=== PATIENT | male | born 1970 | race Caucasian/White ===

== ENCOUNTER 2020-03-17 21:50 | Inpatient (IN) | payer SELFPAY ==
[2020-03-17 21:51] VITALS: BP 147/75; BP 147/88; PULSE 82; PULSE 87; RESP 16; RESP 18; TEMP 36.7; O2SAT 97; BMI 24.2
[2020-03-17 21:56] VITALS: BP 137/78; PULSE 67; RESP 16; O2SAT 94
--- NOTE | 2020-03-17 21:56 | XR_ITS ---
WS: [id number] EXAM: AP CHEST: PORTABLE UPRIGHT DATE OF EXAM: 03/17/2020, 1005 hours COMPARISON: Chest x-ray from 02/27/2017 HISTORY: Patient is 49 years old with chest pain for the last 2 weeks. History of COPD.. FINDINGS: The cardiac silhouette is normal in size. The mediastinal contours are normal. The pulmonary vas cularity is normal. The lungs are clear of infiltrate. There is no effusion or pneumothorax. No [place] bony abnormality is seen. XR/XR chest 1V portable [id number] IMPRESSION: No acute pulmonary disease.
--- NOTE | 2020-03-17 21:57 | ECG_ITS ---
[facility] Test Date: 2020-03-17 Pat Name: Apollo Price Department: Room: Gender: Male [employer]: : 1970 Requested By: Rosalia Encarnacion Order Number: [id number] Villareal MD: Wellington Jo M.D. Measurements Intervals [place] Rate: 70 P: 70 RI: 142 QRS: 47 QRSD: 84 T: 71 QT: 340 QTc: 368 Interpretive Statements SINUS RHYTHM POSSIBLE LEFT ATRIAL ENLARGEMENT [-0.1mV P WAVE IN V1/V2] NONSPECIFIC ST & T-WAVE ABNORMALITY Compared to ECG 02/27/2017 12:17:59 T-wave abnormality now present Myocardial infarct finding no longer present Electronically Signed On 03-18-2020 20:52:04 CDT by Wellington Jo M.D. [email or web address]/[id number]
--- NOTE | 2020-03-17 21:58 | W.ED.CHESTPA ---
HPI - Chest Pain General: Chief Complaint: Chest Pain Stated Complaint: CP Time Seen by Provider: 03/17/20 21:54 Source: patient Mode of arrival: ambulatory Limitations: no limitations History of Present Illness: HPI narrative: Frantz is a 49-year-old male who comes in with report of chest pain for the past 2 weeks. He states is been intermittent in nature. It is been progressively worsening in severity and frequency. He states it is made worse by exertion relieved by rest and nitroglycerin. Tonight he had his worst episode of chest pain that he also had a syncopal spell with. He had associated diaphoresis, nausea vomiting and radiation to his arm. EMS was called after this happened and with stable vital signs they gave him aspirin 325 and 1 sublingual nitroglycerin which resolved his symptoms. Patient arrives here says his pain is for the most part gone. Patient still says he feels weak and tired all over. Denies any cough, fever or infectious type symptoms. Patient is a smoker, has history of hypertension and a family history of heart disease. Associated symptoms: Reports diaphoresis, dyspnea and syncope; Deny abdominal pain, fever(s) or palpitations Review of Systems Const: Reports: diaphoresis; Denies: fever(s), chills, body aches, fatigue or malaise Eyes: Denies: change in vision, blurry vision, photophobia, eye discomfort, eye discharge, eye redness or yellow eyes ENMT: Denies: throat pain, odynophagia, hoarseness, swelling of lips/tongue, ear or mastoid pain, ear discharge, change in hearing or nasal discharge Card: Reports: chest pain and syncope; Denies: palpitations, irregular heart rhythm, edema, lightheadedness, pre-syncope, dyspnea on exertion or orthopnea Resp: Reports: dyspnea; Denies: productive cough, non-productive cough, wheezing, hemoptysis or chest congestion GI: Denies: abdominal pain, hematemesis, coffee ground emesis, heartburn, diarrhea, constipation, GI cramping, hematochezia or melena : Denies: flank pain, dysuria, urinary frequency, urinary urgency or hematuria Musc: Denies: neck pain, back pain, extremity pain, extremity swelling, joint pain, joint swelling, joint redness, joint warmth or joint stiffness Skin/Breast: Denies: rash, pruritus, erythema, skin pain or skin tenderness Neuro: Denies: headache(s), numbness in extremities, weakness in extremities, sensory changes, lack of coordination, difficulty walking, dizziness, vertigo, confusion, Slurred speech present or seizure-like activity Hu/Lymph: Denies: easy bruising, easy bleeding, petechiae, purpura or enlarged lymph nodes All/Imm: Denies: urticaria, throat swelling, tongue swelling, facial swelling or acute wheezing PFSH ED PFSH: Medical History (Updated 03/18/20 @ 04:10 by Rosalia Jackson) Hypertension Physical Exam Const: COMMON NORMALS: no acute distress, patient oriented x3, no limitations and alert GENERAL APPEARANCE: cooperative HENMT: COMMON NORMALS: normocephalic, atraumatic, external ears normal, EAC's normal and Normal external nose present HEAD & SCALP: normal to inspection, normocephalic and atraumatic FACE & SINUS: normal facial exam and face symmetric NOSE: Normal external nose present and Normal nares present EXTERNAL EAR: Yes external ears normal EXTERNAL AUDITORY CANAL: EAC's normal MOUTH: Normal oral and palatal mucosa present, lip normal and tongue normal Eye: COMMON NORMALS: Equal, round and reactive pupils present and conjunctivae normal GENERAL EYE: appearance normal, both eyes and all related structures ALIGNMENT: Yes alignment normal PERIORBITAL: periorbital findings normal EYELID: eyelids normal CONJUNCTIVA: Yes conjunctivae normal SCLERA: sclerae normal PUPIL: Yes Equal, round and reactive pupils present Neck/C-Spine: COMMON NORMALS: full ROM, no lymphadenopathy, supple, no meningeal signs and no JVD GENERAL: Yes normal visual inspection and Yes trachea midline Chest: COMMONS NORMALS: normal inspection of the chest and normal palpation of entire chest wall Resp: COMMON NORMALS: normal respiratory effort, No retractions, No use of accessory muscles and clear to auscultation bilaterally EFFORT & INSPECTION: Yes able to speak in complete sentences and Yes symmetric chest movement AUSCULTATION: clear to auscultation bilaterally, no crackles, no rales, no rhonchi and no wheezes Cardio: COMMON NORMALS: no JVD, regular rate, regular rhythm, S1 normal heart sound present and S2 normal heart sound present RATE: regular rate RHYTHM: regular rhythm HEART SOUNDS: S1 normal heart sound present, S2 normal heart sound present, no click, no gallops, no murmurs and no rubs GI: COMMON NORMALS: Soft to palpation and No hepatosplenomegaly present PALPATION: Yes Soft to palpation, No Tenderness to palpation present (GI), No Guarding due to palpation present (GI), No Rigid due to palpation, Yes No hepatosplenomegaly present, No Hernia present, No Palpable mass present and No Pulsatile mass present : COMMON NORMALS: Yes no CVA tenderness BLADDER/KIDNEY EXAM: Yes no CVA tenderness Back/Pelvis: COMMON NORMALS: no CVA tenderness, thoracic and lumbar spine normal to inspection, no thoracic nor lumbar tenderness and thoraco-lumbar ROM normal Extremity: COMMON NORMALS: normal to inspection, full ROM, capillary refill normal, no joint enlargement, no clubbing, cyanosis or edema and no calf tenderness Neuro: COMMON NORMALS: patient oriented x3, CN's II-XII intact bilaterally, moves all extremities, no focal motor deficits and no sensory deficits noted SENSORIUM/ORIENTATION: Yes alert MENINGEAL SIGNS: Yes no meningeal signs SPEECH: speech normal Psych: COMMON NORMALS: mental status grossly normal, Normal thought process present, cooperative, normal affect, speech normal and activity/motor behavior normal SPEECH: Yes normal speech THOUGHT PROCESS: Normal thought process present Skin: COMMON NORMALS: no rashes or lesions noted, turgor normal, no jaundice, no petechiae and no mottling GENERAL SKIN EXAM: no rashes or lesions noted and turgor normal Course Vital Signs: Vital signs: Vital Signs Temperature 98.0 F 03/18/20 04:15 Pulse Rate 62 03/18/20 04:14 Respiratory Rate 15 03/18/20 04:14 Blood Pressure 119/76 03/18/20 04:14 Pulse Oximetry 98 03/18/20 04:14 MDM - Chest Pain MDM Narrative: Medical decision making narrative: The case was reviewed in its entirety with Dr. Morales, patient has good pulses in his feet no sign of vascular obstruction. Patient's chest pain is been resolved with 1 nitro here. He has ruled in positive for a NSTEMI. Dr. Morales will admit and plans to take him to the [facility] later. Lab Data: Attestation: I reviewed the patient's lab results. Labs: Lab Results 03/17/20 03/17/20 03/17/20 Range/Units 22:04 22:04 22:04 WBC 9.0 (4.0-10.0) 10^3/ uL RBC 4.71 (4.1-5.3) 10^6/u L Hgb 14.1 (11.7-16.6) g/dL Hct 43.6 (42.0-52.0) % MCV 92.6 (80-94) fL MCH 29.9 (28.0-34.0) pg MCHC 32.3 (30.0-36.0) g/dL RDW 13.5 (12.1-15.1) % Plt Count 249 (130-400) 10^3/c mm MPV 10.5 H (7.4-10.4) fL Neut % (Auto) 69.3 % Lymph % (Auto) 23.1 % [place] % (Auto) 5.7 % Eos % (Auto) 1.4 % Baso % (Auto) 0.3 % Neut # (Auto) 6.25 (1.8-7.7) 10^3/u L Lymph # (Auto) 2.1 (0.8-4.8) 10^3/u L [place] # (Auto) 0.5 (0.2-0.9) 10^3/u L Eos # (Auto) 0.1 (0.0-0.8) 10^3/u L Baso # (Auto) 0.0 (0.0-0.1) 10^3/u L Nucleated RBC % (a uto) 0 % Nucleated RBCs # 0.0 /100WBC PT 13.30 (12.1-14.9) SECO NDS INR 0.98 (0.8-1.2) APTT 27.5 (23.9-36.7) SECO NDS D-Dimer (0-0.59) ug/mIFE U Sodium 141 (136-145) mmol/L Potassium 3.5 (3.5-5.1) mmol/L Chloride 106 (98-107) mmol/L Carbon Dioxide 26 (22-29) mmol/L Anion Gap 12.5 (5-19) BUN 15 (6-20) mg/dL Creatinine 0.9 (0.7-1.2) mg/dL GFR Calculation 89.0 L (90-130) mL/min Glucose 160 H (65-115) mg/dL Calculated Osmolal ity 292 (285-295) mOsm/k g Calcium 8.9 (8.5-10.5) mg/dL Magnesium 2.0 (1.7-2.3) mg/dL Total Bilirubin 0.2 (0.15-1.2) mg/dL AST 19 (0-40) U/L ALT 17 (0-41) U/L Alkaline Phosphata se 117 (40-130) IU/L Troponin T Baselin e (0-15) ng/L Troponin T 120 Min [place] (0-15) ng/L Delta Troponin T (0-10) ABS# NT-Pro-B Natriuret Pep 47 (0-125) pg/mL Total Protein 6.6 (6.6-8.7) g/dL Albumin 3.8 (3.5-5.2) g/dL Globulin 2.8 (1.3-4.6) g/dL 03/17/20 03/17/20 03/18/20 Range/Units 22:04 22:04 00:28 WBC (4.0-10.0) 10^3/ uL RBC (4.1-5.3) 10^6/u L Hgb (11.7-16.6) g/dL Hct (42.0-52.0) % MCV (80-94) fL MCH (28.0-34.0) pg MCHC (30.0-36.0) g/dL RDW (12.1-15.1) % Plt Count (130-400) 10^3/c mm MPV (7.4-10.4) fL Neut % (Auto) % Lymph % (Auto) % [place] % (Auto) % Eos % (Auto) % Baso % (Auto) % Neut # (Auto) (1.8-7.7) 10^3/u L Lymph # (Auto) (0.8-4.8) 10^3/u L [place] # (Auto) (0.2-0.9) 10^3/u L Eos # (Auto) (0.0-0.8) 10^3/u L Baso # (Auto) (0.0-0.1) 10^3/u L Nucleated RBC % (a uto) % Nucleated RBCs # /100WBC PT (12.1-14.9) SECO NDS INR (0.8-1.2) APTT (23.9-36.7) SECO NDS D-Dimer 2.78 H (0-0.59) ug/mIFE U Sodium (136-145) mmol/L Potassium (3.5-5.1) mmol/L Chloride (98-107) mmol/L Carbon Dioxide (22-29) mmol/L Anion Gap (5-19) BUN (6-20) mg/dL Creatinine (0.7-1.2) mg/dL GFR Calculation (90-130) mL/min Glucose (65-115) mg/dL Calculated Osmolal ity (285-295) mOsm/k g Calcium (8.5-10.5) mg/dL Magnesium (1.7-2.3) mg/dL Total Bilirubin (0.15-1.2) mg/dL AST (0-40) U/L ALT (0-41) U/L Alkaline Phosphata se (40-130) IU/L Troponin T Baselin e 31 H (0-15) ng/L Troponin T 120 Min [place] 94.91 H (0-15) ng/L Delta Troponin T 63.91 H* (0-10) ABS# NT-Pro-B Natriuret Pep (0-125) pg/mL Total Protein (6.6-8.7) g/dL Albumin (3.5-5.2) g/dL Globulin (1.3-4.6) g/dL Imaging Data^: CXR: Attestation: I personally reviewed and interpreted this imaging study as follows: My impression: No acute cardiopulmonary findings. CT Chest: Radiologist's impression: [address] [address] [address] Scan Report Signed Patient: Apollo Price #: [id number] : 1970Acct#:[id number] Age/Sex: 49 / MADM Date: 03/18/20 Loc: CSURoom/Bed: [address]: Kelli Santos MD Ordering Provider/Ordering MD: Rosalia Jackson DO Date of Service: 03/18/20 Procedure(s): CT angio chest PE protcl [id number] Accession Number(s): [id number] Report Number: [id number] PROCEDURE INFORMATION: Exam: CT Angiography Chest With Contrast Exam date and time: 03/18/2020 1:16 AM Age: 49 years old Clinical indication: Type not specified; Patient HX: Chest pains x 2 wks, getting worse; Additional info: Chest pain TECHNIQUE: Imaging protocol: Computed tomographic angiography of the chest with intravenous contrast. 3D rendering (Not supervised by radiologist): MIP and/or 3D reconstructed images were created by the technologist. Radiation optimization: All CT scans at this facility use at least one of these dose optimization techniques: automated exposure control; mA and/or kV adjustment per patient size (includes targeted exams where dose is matched to clinical indication); or iterative reconstruction. Contrast material: OMNIPAQUE 350; Contrast volume: 95 ml; Contrast route: INTRAVENOUS (IV); COMPARISON: CR XR chest 1V portable [id number] 2020-03-17 22:02 RADIATION DOSE METRICS: Total DLP (mGy-cm): 605.89 FINDINGS: Pulmonary arteries: No filling defects in the pulmonary arteries to suggest pulmonary emboli. Aorta: Abnormal appearance of the abdominal aorta, recommend further evaluation. There is irregularity of the wall with an abdominal aortic aneurysm with intraluminal thrombus partially visualized. Lungs: There is a pulmonary parenchymal calcification consistent with remote granulomatous organism exposure. Dependent subsegmental pulmonary atelectasis. Pleural space: Unremarkable. No pneumothorax. No pleural effusion. Heart: Greater than typical left anterior descending coronary artery atherosclerosis for age with luminal compromise. Lymph nodes: Unremarkable. No enlarged lymph nodes. Bones/joints: Unremarkable. No acute fracture. Soft tissues: Unremarkable. Other findings: Recommend abdomen pelvis evaluation to determine how big the aneurysm is. CT/CT angio chest PE protcl [id number] IMPRESSION: 1. No filling defects in the pulmonary arteries to suggest pulmonary emboli. 2. Greater than typical left anterior descending coronary artery atherosclerosis for age with some degree of potentially significant luminal compromise. 3. Abnormal appearance of the abdominal aorta, recommend further evaluation. There is irregularity of the wall with an abdominal aortic aneurysm with intraluminal thrombus partially visualized. Recommend abdomen pelvis evaluation to determine how big the aneurysm is. Radiation Dose CTDIVOL = (mGy): DLP = 605.89 (mGy-cm) Dictated By:Eros Gomez MD Signed By:Eros Gomez MDSigned Date/Time:03/18/20304 DD/ 3 CT Abd/Pel: Radiologist's impression: [facility] [address] [place] [address] CT Scan Report Signed Patient: Apollo Price #: [id number] : 1970Acct#:[id number] Age/Sex: 49 / MADM Date: 03/18/20 Loc: CSURoom/Bed: [address]: Wellington Jo MD Ordering Provider/Ordering MD: Rosalia Jackson DO Date of Service: 03/18/20 Procedure(s): CT abdomen pelvis wo con [id number] Accession Number(s): [id number] Report Number: [id number] PROCEDURE INFORMATION: Exam: CT Abdomen And Pelvis Without Contrast Exam date and time: 03/18/2020 3:31 AM Age: 49 years old Clinical indication: Abdominal pain; Other: Chest pain into abd; Patient HX: Chest pains x 2 weeks radiating into upper abd TECHNIQUE: Imaging protocol: Computed tomography of the abdomen and pelvis without contrast. Radiation optimization: All CT scans at this facility use at least one of these dose optimization techniques: automated exposure control; mA and/or kV adjustment per patient size (includes targeted exams where dose is matched to clinical indication); or iterative reconstruction. COMPARISON: No relevant prior studies available. RADIATION DOSE METRICS: Total DLP (mGy-cm): 451.18 FINDINGS: Liver: Normal. No mass. Gallbladder and bile ducts: Normal. No calcified stones. No ductal dilation. Pancreas: Normal. No ductal dilation. Spleen: The spleen demonstrates punctate calcifications, consistent with remote granulomatous organism exposure. Adrenals: Normal. No mass. Kidneys and ureters: Small, less than 5 mm, renal hypodensity. Highly likely to be benign and does not require follow-up imaging or biopsy per ACR. Benign right inferior renal 8 mm simple cyst. Stomach and bowel: Question thickening of the sigmoid colon, correlate for infectious or inflammatory or neoplastic disease. Slightly excessive fluid in gas within the transverse and ascending colon. No pericolonic stranding. Mildly irregular duodenal bulb and pyloric region, question peptic ulcer disease. Appendix: No evidence of appendicitis. Intraperitoneal space: Unremarkable. No free air. No significant fluid collection. Vasculature: Unremarkable. No abdominal aortic aneurysm. Lymph nodes: Unremarkable. No enlarged lymph nodes. Bladder: Unremarkable as visualized. Reproductive: Unremarkable as visualized. Bones/joints: Unremarkable. No acute fracture. Soft tissues: Unremarkable. CT/CT abdomen pelvis wo con [id number] IMPRESSION: 1. Question thickening of the sigmoid colon, correlate for infectious or inflammatory or neoplastic disease. Nonspecific excessive fluid in gas within the transverse and ascending colon. 2. Mildly irregular duodenal bulb and pyloric region, question peptic ulcer disease. 3. Infrarenal aortic ectasia with maximal diameter 3.3 cm with intraluminal rind of soft plaque or thrombus. Mild narrowing of the lumen of the distal aorta. Assessment for iliac artery patency not possible given the delayed contrast phase. Radiation Dose CTDIVOL = (mGy): DLP = 451.18 (mGy-cm) Dictated By:Eros Gomez MD Signed By:Eros Gomez MDSigned Date/Time:03/18/20358 DD/ 6 EKG Data^: EKG 1: Attestation: I personally reviewed and interpreted this EKG as follows: EKG interpretation date: 03/17/20 EKG interpretation time: 22:28 Interpretation: Normal sinus rhythm at 70 beats a minute, no blocks, normal intervals, mild ST segment depression V4 through V6. Normal axis. No other acute ST or T wave changes. EKG 2: Attestation: I personally reviewed and interpreted this EKG as follows: EKG interpretation date: 03/18/20 EKG interpretation time: 00:36 Interpretation: Normal sinus rhythm at 61 beats a minute, normal axis, no acute ST or T wave changes. Unchanged from previous. Discharge Plan Discharge Patient Disposition: Placed in Observation Admit Provider: Kelli Santos Clinical Impression: Acute non-ST elevation myocardial infarction (NSTEMI) Condition: Stable Referrals: Pillo Elder NP [Primary Care Provider] - Discharge Date/Time: 03/18/20 04:15 Coding Level of Care Code ED Branch Logistics Supervisor for Chg Fwd Exam Comprehensive
[2020-03-17 22:15] LABS: Basophils % 0.3 %; Eosinophils # 0.1 10^3/uL (0.0-0.8); Eosinophils % 1.4 %; Hematocrit 43.6 % (42.0-52.0); Hemoglobin 14.1 g/dL (11.7-16.6); Lymphocytes # 2.1 10^3/uL (0.8-4.8); Lymphocytes % 23.1 %; Mean Corpuscular HGB Conc 32.3 g/dL (30.0-36.0); Mean Corpuscular Hemoglobin 29.9 pg (28.0-34.0); Mean Corpuscular Volume 92.6 fL (80-94); Mean Platelet Volume 10.5 fL (7.4-10.4); Monocytes # 0.5 10^3/uL (0.2-0.9); Monocytes % 5.7 %; Neutrophils # 6.25 10^3/uL (1.8-7.7); Neutrophils % 69.3 %; Nucleated Red Blood Cells % 0 %; Platelet Count 249 10^3/cmm (130-400); Red Blood Count 4.71 10^6/uL (4.1-5.3); Red Cell Distribution Width 13.5 % (12.1-15.1)
[2020-03-17 22:26] VITALS: BP 112/78; PULSE 64; RESP 18; O2SAT 99
[2020-03-17] MEDS: nitroglycerin 1 gm/inch oint Pkt 1 INCH TOPICAL (22:36)
[2020-03-17] MEDS: sodium chloride 0.9% 1,000 ML 100 ML IV (22:36)
[2020-03-17] MEDS: ondansetron 2 mg/ML SDV 2 mL 4 MG IVP (22:36)
[2020-03-17 22:56] VITALS: BP 103/78; PULSE 74; RESP 18; O2SAT 98
[2020-03-17 22:56] LABS: Alanine Aminotransferase 17 U/L (0-41); Albumin Level 3.8 g/dL (3.5-5.2); Alkaline Phosphatase 117 IU/L (40-130); Anion Gap 12.5 (5-19); Aspartate Amino Transferase 19 U/L (0-40); Blood Urea Nitrogen 15 mg/dL (6-20); Calcium 8.9 mg/dL (8.5-10.5); Carbon Dioxide 26 mmol/L (22-29); Chloride 106 mmol/L (98-107); Globulin 2.8 g/dL (1.3-4.6); Glucose 160 mg/dL (65-115); NT Pro B Type Natriuretic Pept 47 pg/mL (0-125); Osmolality Calculated 292 mOsm/kg (285-295); Potassium 3.5 mmol/L (3.5-5.1); Sodium 141 mmol/L (136-145); Total Bilirubin 0.2 mg/dL (0.15-1.2); Total Protein 6.6 g/dL (6.6-8.7)
[2020-03-17 23:05] LABS: INR 0.98 (0.8-1.2)
[2020-03-17 23:06] LABS: Partial Thromboplastin Time 27.5 SECONDS (23.9-36.7)
[2020-03-17 23:08] LABS: Troponin(5th) Baseline 31 ng/L (0-15)
--- NOTE | 2020-03-17 23:57 | ECG_ITS ---
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 Measurements Intervals [place] Rate: 61 P: 58 [place]: 150 QRS: 48 QRSD: 88 T: 40 QT: 404 QTc: 409 Interpretive Statements SINUS RHYTHM SEPTAL MYOCARDIAL INFARCTION , OF INDETERMINATE AGE [40+ ms Q WAVE IN V1/V2] Compared to ECG 03/17/2020 22:27:15 Myocardial infarct finding now present T-wave abnormality no longer present Electronically Signed On 03-18-2020 20:52:42 CDT by Wellington Jo M.D. [email or web address]/OM/[id number]
[2020-03-18] VITALS (36 sets, daily range): BP systolic 99–163; BP diastolic 58–106; PULSE 61–94; RESP 12–25; TEMP 36.7–37; O2SAT 92–100
[2020-03-18 01:13] LABS: D Dimer 2.78 ug/mIFEU (0-0.59)
--- NOTE | 2020-03-18 01:16 | CTR_ITS ---
PROCEDURE INFORMATION: Exam: CT Angiography Chest With Contrast Exam date and time: 03/18/2020 1:16 AM Age: 49 years old Clinical indication: Type not specified; Patient HX: Chest pains x 2 wks, getting worse; Additional info: Chest pain TECHNIQUE: Imaging protocol: Computed tomographic angiography of the chest with intravenous contrast. 3D rendering (Not supervised by radiologist): MIP and/or 3D reconstructed images were created by the technologist. Radiation optimization: All CT scans at this facility use at least one of these dose optimization techniques: automated exposure control; mA and/or kV adjustment per patient size (includes targeted exams where dose is matched to clinical indication); or iterative reconstruction. Contrast material: OMNIPAQUE 350; Contrast volume: 95 ml; Contrast route: INTRAVENOUS (IV); COMPARISON: CR XR chest 1V portable [id number] 2020-03-17 22:02 RADIATION DOSE METRICS: Total DLP (mGy-cm): 605.89 FINDINGS: Pulmonary arteries: No filling defects in the pulmonary arteries to suggest pulmonary emboli. Aorta: Abnormal appearance of the abdominal aorta, recommend further evaluation. There is irregularity of the wall with an abdominal aortic aneurysm with intraluminal thrombus partially visualized. Lungs: There is a pulmonary parenchymal calcification consistent with remote granulomatous organism exposure. Dependent subsegmental pulmonary atelectasis. Pleural space: Unremarkable. No pneumothorax. No pleural effusion. Heart: Greater than typical left anterior descending coronary artery atherosclerosis for age with luminal compromise. Lymph nodes: Unremarkable. No enlarged lymph nodes. Bones/joints: Unremarkable. No acute fracture. Soft tissues: Unremarkable. Other findings: Recommend abdomen pelvis evaluation to determine how big the aneurysm is. CT/CT angio chest PE protcl [id number] IMPRESSION: 1. No filling defects in the pulmonary arteries to suggest pulmonary emboli. 2. Greater than typical left anterior descending coronary artery atherosclerosis for age with some degree of potentially significant luminal compromise. 3. Abnormal appearance of the abdominal aorta, recommend further evaluation. There is irregularity of the wall with an abdominal aortic aneurysm with intraluminal thrombus partially visualized. Recommend abdomen pelvis evaluation to determine how big the aneurysm is. Radiation Dose CTDIVOL = (mGy): DLP = 605.89 (mGy-cm)
[2020-03-18 01:23] LABS: Troponin 5 2HR 94.91 ng/L (0-15)
[2020-03-18 01:32] LABS: Troponin 5 2HR Delta 63.91 ABS# (0-10)
[2020-03-18] MEDS: enoxaparin 80 mg/0.8 mL Syringe 68 MG SUBCUT (02:00)
[2020-03-18] MEDS: iohexol 350 mg/mL 100 mL Btl IV (02:23)
--- NOTE | 2020-03-18 03:27 | CTR_ITS ---
PROCEDURE INFORMATION: Exam: CT Abdomen And Pelvis Without Contrast Exam date and time: 03/18/2020 3:31 AM Age: 49 years old Clinical indication: Abdominal pain; Other: Chest pain into abd; Patient HX: Chest pains x 2 weeks radiating into upper abd TECHNIQUE: Imaging protocol: Computed tomography of the abdomen and pelvis without contrast. Radiation optimization: All CT scans at this facility use at least one of these dose optimization techniques: automated exposure control; mA and/or kV adjustment per patient size (includes targeted exams where dose is matched to clinical indication); or iterative reconstruction. COMPARISON: No relevant prior studies available. RADIATION DOSE METRICS: Total DLP (mGy-cm): 451.18 FINDINGS: Liver: Normal. No mass. Gallbladder and bile ducts: Normal. No calcified stones. No ductal dilation. Pancreas: Normal. No ductal dilation. Spleen: The spleen demonstrates punctate calcifications, consistent with remote granulomatous organism exposure. Adrenals: Normal. No mass. Kidneys and ureters: Small, less than 5 mm, renal hypodensity. Highly likely to be benign and does not require follow-up imaging or biopsy per ACR. Benign right inferior renal 8 mm simple cyst. Stomach and bowel: Question thickening of the sigmoid colon, correlate for infectious or inflammatory or neoplastic disease. Slightly excessive fluid in gas within the transverse and ascending colon. No pericolonic stranding. Mildly irregular duodenal bulb and pyloric region, question peptic ulcer disease. Appendix: No evidence of appendicitis. Intraperitoneal space: Unremarkable. No free air. No significant fluid collection. Vasculature: Unremarkable. No abdominal aortic aneurysm. Lymph nodes: Unremarkable. No enlarged lymph nodes. Bladder: Unremarkable as visualized. Reproductive: Unremarkable as visualized. Bones/joints: Unremarkable. No acute fracture. Soft tissues: Unremarkable. CT/CT abdomen pelvis wo con [id number] IMPRESSION: 1. Question thickening of the sigmoid colon, correlate for infectious or inflammatory or neoplastic disease. Nonspecific excessive fluid in gas within the transverse and ascending colon. 2. Mildly irregular duodenal bulb and pyloric region, question peptic ulcer disease. 3. Infrarenal aortic ectasia with maximal diameter 3.3 cm with intraluminal rind of soft plaque or thrombus. Mild narrowing of the lumen of the distal aorta. Assessment for iliac artery patency not possible given the delayed contrast phase. Radiation Dose CTDIVOL = (mGy): DLP = 451.18 (mGy-cm)
--- NOTE | 2020-03-18 03:57 | ECG_ITS ---
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 Measurements Intervals [place] Rate: 60 P: 70 NH: 136 QRS: 55 QRSD: 82 T: 51 QT: 412 QTc: 413 Interpretive Statements SINUS RHYTHM SEPTAL MYOCARDIAL INFARCTION [40+ ms Q WAVE IN V1/V2], PROBABLY RECENT ACUTE ID Compared to ECG 03/18/2020 00:36:36 No significant changes Electronically Signed On 03-18-2020 20:52:52 CDT by Wellington Jo M.D. [id number]
--- NOTE | 2020-03-18 04:38 | PC.NURSE ---
Patient arrived to the floor from the ED after report was received via phone. Patient is alert and oriented and ambulatory. Patient does not have any complaints at this time and no pain. VSS. Patient has been oriented to his room and has call light within reach.
[2020-03-18] MEDS: sodium chloride 0.9% 1,000 ML 100 ML IV ×2 (04:45→14:56)
--- NOTE | 2020-03-18 07:44 | PC.NURSE ---
Asleep at this time
[2020-03-18] MEDS: clopidogrel 300 mg Tablet 600 MG PO (10:32)
[2020-03-18] MEDS: pantoprazole DR 40 mg Tablet PO (10:33)
[2020-03-18] MEDS: atorvastatin 40 mg Tablet 80 MG PO ×2 (10:33→19:46)
[2020-03-18] MEDS: nicotine 2 mg Gum 4 MG BUCCAL (12:03)
--- NOTE | 2020-03-18 12:16 | USCV_ITS ---
Apollo Price Age: 49 Gender: M : 1970 Exam Date: 03/18/2020 16:39 Ordering Phys: Wellington Jo MD ([email or web address]) Technologist: Tammy Pfeiffer [place] [facility] [place] Indication: NON ST ELEVATION PA BP: 134 / 58 HR: 73 Rhythm: Sinus Technical Quality: Adequate MEASUREMENTS (Male / Female) Normal Values 2D ECHO LV Diastolic Diameter PLAX 4.5 cm 4.2 - 5.9 / 3.9 - 5.3 cm LV Systolic Diameter PLAX 3.9 cm LV Chamber Size 3.3 cm IVS Diastolic Thickness 1.1 cm 0.6 - 1.0 / 0.6 - 0.9 cm IVS Systolic Thickness 1.4 cm LVPW Diastolic Thickness 1.6 cm 0.6 - 1.0 / 0.6 - 0.9 cm LVPW Systolic Thickness 1.2 cm RV Chamber Size 3.1 cm LVOT Diameter 2.0 cm LV Ejection Fraction 2D Teich 29.7 % LV Ejection Fraction MOD 2C 53.6 % LV Ejection Fraction 2C AL 51.6 % LA Diameter 2.5 cm LA Width 3.1 cm LA Height 3.1 cm RA Width 4.1 cm RA Height 4.1 cm Aorta at Sinotubular Diameter 3.5 cm M-MODE LV Diastolic Diameter MM 4.9 cm 4.2 - 5.9 / 3.9 - 5.3 cm LV Systolic Diameter MM 2.5 cm LV Ejection Fraction MM Teich 80.3 % IVS Diastolic Thickness MM 0.6 cm 0.6 - 1.0 / 0.6 - 0.9 cm IVS Systolic Thickness MM 1.2 cm LVPW Diastolic Thickness MM 1.1 cm 0.6 - 1.0 / 0.6 - 0.9 cm LVPW Systolic Thickness MM 1.1 cm RV Diastolic Diameter MM 1.2 cm Aortic Annulus Diameter 3.4 cm LA Ao Ratio MM 0.7 MV E Point Septal Separation 0.9 cm DOPPLER AV Peak Velocity 153.0 cm/s LVOT Peak Velocity 99.0 cm/s AV Area Cont Eq vti 2.3 cm squared AV Area Cont Eq pk 2.1 cm squared MV Area PHT 3.6 cm squared Mitral E to A Ratio 1.0 MV E' Velocity 13.0 cm/s Mitral E to MV E' Ratio 9.4 Mitral E to LV E' Lateral Ratio 8.5 Mitral E to LV E' Septal Ratio 10.6 TR Peak Velocity 135.9 cm/s TR Peak Gradient 7.4 mmHg TR Mean Velocity 87.1 cm/s TR Mean Gradient 3.6 mmHg TR Velocity Time Integral 25.4 cm TV Peak E Velocity 91.0 cm/s Right Atrial Pressure 3.0 mmHg Pulmonary Artery Systolic Pressu 10.4 mmHg PV Peak Velocity 75.0 cm/s RV Acceleration Time 0.1 s RV Ejection Time 0.3 s RV AcT/ET 0.5 FINDINGS Left Ventricle Normal left ventricular cavity size. Normal left ventricular systolic function. Left ventricular ejection fraction is estimated at 55 %. There is anterior and septal wall hypokinesis.Grade I/IV diastolic dysfunction (abnormal relaxation filling pattern), normal to mildly elevated filling pressures. Right Ventricle The right ventricle is normal in size and function. Right Atrium The right atrium is normal in size. Left Atrium The left atrium is normal in size. Mitral Valve Structurally normal mitral valve without significant stenosis or prolapse. There is no mitral regurgitation. Aortic Valve Mild aortic valve regurgitation. No aortic valve regurgitation. Tricuspid Valve Structurally normal tricuspid valve without significant stenosis or regurgitation. Pulmonary artery systolic pressure is normal. Pulmonic Valve Structurally normal pulmonic valve without significant stenosis. There is no pulmonic regurgitation. Pericardium Normal pericardium without effusion. Aorta Normal ascending aorta dimension. CONCLUSIONS 1-Normal left ventricular cavity size. Normal left ventricular systolic function. Left ventricular ejection fraction is estimated at 55 %. There is anterior and septal wall hypokinesis.Grade I/IV diastolic dysfunction (abnormal relaxation filling pattern), normal to mildly elevated filling pressures. 2-There is no pericardial effusion. 3-No significant valve abnormalities. 4-Pulmonary artery systolic pressure is within normal limits. 5-Right atrial pressure is around 5 mm of mercury. 6-There are no prior echocardiogram studies to compare. Wellington Jo MD (Electronically Signed) Final Date: 19 March 2020 17:17 S
--- NOTE | 2020-03-18 13:01 | PC.CHAP ---
Pastoral Care Encounter/Spiritual Assessment Type of Contact [] Declined police service technician visit [] Patient/Family/Request visit [] Outpatient visit [] Follow-up visit [] Physician referral [] Code/Alert [x] Routine visit [] Staff referral [] Actively dying [] Patient sleeping [] Family support [] [] Out of room [] Palliative care [] [] Receiving care in room [] Pre-surgical visit [] Trauma [] Long length of stay [] ICU visit [] Other: Relational/Emotional Strength [x] Patient feels connected with others/family/visitors/staff [] Distress [] Loneliness/isolation [] Abandonment Spirituality of Patient [x] Person of Amanda [] Attends Jew of their Amanda [x] Believes in Prayer [] Reads Bible or Baptism materials [] There are Spiritual issues to be addressed Motion Picture Set Up Worker Interventions [x] Prayer [x] Active listening [x] Non-anxious presence [x] Spiritual/emotional support [] Crisis/trauma care [] Spiritual counseling [] Bereavement support [] Provided bereavement packet [] Provided Bible/devotional materials [] Provided toy/stuffed animal, coloring book to patient or family member [] Provided Communion [] Anointing/Hornick [] Salvation [] Completed spiritual assessment [] Other: Impact on Illness or Injury [] Angry [] Fearful [] Anxious [] Often cries [] Exhaustion [] Unable to work [] Unable to attend yarsanism [] Unable to walk/stand [] Unable to read [] Unable to drive [] Unable to eat/drink [] Unable to sleep [x] Unable to be with family [] Patient intubated [] Other: Summary Patient stated that he was feeling alright and was just waiting to see the doctor to find out what was needed to be done. Motion Picture Set Up Worker prayed for patient and the patient asked if police service technician would send a nurse into his room. Motion Picture Set Up Worker informed nurse of patient's request. Time spent with patient 8 minutes
[2020-03-18 13:58] LABS: Glucose Urine UA Norm (Normal); Protein Urine 2+ (Negative); Specific Gravity, Urine 1.005 (1.005-1.030); Urine Appearance Hazy (CLEAR); Urine Color Yellow (Yellow); pH Urine 5 (5-7)
[2020-03-18 13:59] LABS: Add Urine Microscopic? YES; Bilirubin Urine Neg (Negative); Blood Urine 3+ (Negative); Ketones Urine Negative (Negative); Leukocyte Esterase Urine Negative (Negative); Nitrate Urine Negative (Negative); Urobilinogen Urine Norm (Negative)
--- NOTE | 2020-03-18 14:00 | PC.NURSE ---
Pt refused Explained pt that we need to prep his groin areas and wrist for LHC. he refused to be shaved in his groin areas. He stated he has problem with hernia on left groin and had back injury since kid. I asked him if he has trouble urinating and he said he has trouble starting to urinate. He said he has trouble with this since 5 yrs ago. notified wood preserving plant laborer.
[2020-03-18 14:07] LABS: Add Urine Culture? Yes; Bacteria Urine TRACE /hpf; Squamous Epithelial Cell Urine 0-4 /hpf (0-5)
--- NOTE | 2020-03-18 14:10 | PC.NURSE ---
pt stated he had received 325 mg of aspirin last night notified dr alston, received T.O read back to give 81 aspirin today.
[2020-03-18] MEDS: aspirin 81 mg Chew Tablet PO (14:36)
[2020-03-18 15:22] LABS: Troponin T (5th) Once 120 ng/L (0-15)
[2020-03-18] MEDS: diphenhydrAMINE 50 mg Capsule PO (16:04)
--- NOTE | 2020-03-18 16:09 | P.HP_ITS ---
Providers/Chief Complaint Admitting Physician: Kelli Santos MD Primary Care Provider: Pillo Elder NP Chief Complaint: CP History of Present Illness Apollo Price is a 49 year old male past medical history significant for continuous tobacco abuse for the last 30 years came in with chest pain going off-and-on with increasing frequency and duration for the last 2 weeks. Acco rding to the patient in the last few days every time he used to walk a few feet it started hurting in his chest he has to sit down. Yesterday when chest pain become more consistent and increased in intensity he decided to come to ER. He was admitted to rule out for acute coronary syndrome. Delta troponin was high confirming the non-ST elevation RI. Twelve-lead EKG changes did not show any significant abnormality. He was loaded with Plavix and given Lovenox. Overnight in the bed he denied any chest pain. This morning troponin increased to 120. He is being scheduled for left heart cath and possible intervention if indicated. Patient has been explained all risk benefit and alternative for the procedure by myself he would like to proceed with it. Medications/Allergies Home Medications Medication Instructions Recorded Confirmed Last Taken Type metoprolol tartrate 25 mg PO BID 03/18/20 03/18/20 3 Months Ago History ~12/17/19 nitroglycerin 0.4 mg SUBLINGUAL Q5M PRN 03/18/20 03/18/20 1 Day Ago History ~03/17/20 Allergies Allergy/AdvReac Type Severity Reaction Status Date / Time Penicillins Allergy Unknown Verified 03/18/20 04:29 PFSH Acute PFSH: Medical History Hypertension Vitals/I&O/Wt Last Vital Signs Temp 98.5 F 03/18/20 12:06 Pulse 88 03/18/20 14:02 Resp 19 H 03/18/20 12:06 BP 134/68 03/18/20 12:06 Pulse Ox 98 03/18/20 14:02 03/18/20 03/18/20 03/18/20 06:59 14:59 22:59 Intake Total 795 / 795 1582 / 1582 Balance 795 / 795 1582 / 1582 Weight last 48 hrs Weight 150 lb Physical Exam Narrative: EXAM NARRATIVE: GENERAL: Patient is alert, awake and oriented x3. NECK: No jugular vein distension. HEENT: No cyanosis. No icterus. No pallor. HEART: Regular S1 and S2. No murmur, rub or gallop. LUNGS: Clear to auscultate bilaterally. ABDOMEN: Soft, nontender and nondistended. Positive bowel sounds. No guarding, rebound or tenderness. CENTRAL NERVOUS SYSTEM: Grossly nonfocal. EXTREMITIES: Lower extremities without edema bilaterally. Data : 03/17/20 22:04 03/17/20 22:04 A&P Assessment and plan (1) Acute non-ST elevation myocardial infarction (NSTEMI): Patient was ruled in for acute coronary syndrome. He is on anticoagulation in the form of Lovenox loaded with Plavix aspirin statin. He is on beta-naldo. We will be proceeding with left heart cath/PCI if indicated today. Patient has been explained all risk benefit and alternative for the procedure by myself. He would like to proceed with it. Status: Acute (2) Hypertension: Currently well controlled continue medicine Status: Acute Qualifiers: Hypertension type: essential hypertension Qualified Code(s): I10 - Essential (primary) hypertension Attestations Medical Necessity Statement*: I am expecting his stay to cross more than 2 midnights. 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
--- NOTE | 2020-03-18 16:37 | XACV_ITS ---
Exam Room: [facility] Ht: 168 cm Wt: 68 kg BSA: 1.79 m2 Gender: Male : 1970 Any Known Allergies: Penicillins Exam Priority: Routine Procedure(s): Procedure Description: Diagnostic procedure Procedure Description: PCI procedure Procedure Description: Drug Eluting Coronary Stent Procedure Description: PTCA Procedure Description: Miscellaneous Procedure Description: ACT Procedure Description: Coronary Angiography Diagnostic Cath Status: Urgent Diagnostic Findings LM has 0% stenosis. CX has 0% stenosis. Proximal Left Anterior Descending Coronary Artery: Severe 90% stenosis, VENKATESH: 2 flow. mRCA: Severe 100% stenosis, VENKATESH: 0 flow. Coronary angiography shows left dominance. PCI Indication: New Onset Angina <= 2 months Interventional Findings Proximal Left Anterior Descending Coronary Artery: 90% stenosis treated with AB TREK 2.75X25 RX BALLOON, MDT R MICHAEL 3.0X18 JOVITA, and MDT JUAN PABLO EUPHORA RX [id number] BALLOON. 0% residual stenosis, VENKATESH: 3 flow. Conclusions There is severe coronary artery disease with two vessel disease. Proximal Left Anterior Descending Coronary Artery was treated with two Balloon and Drug Eluting Stent. Recommendations 1-Return to inpatient for close monitoring and routine cath care2-Risk factor modification for secondary prevention3-Statin and aspirin 81 mg life--long, if tolerated4-Continue Plavix 75mg p.o. daily for at least one year. We will assess at the end of one year again to continue if further or not5-Continue optimal medical management6-Follow up with Dr. Jo in four weeks and your primary care in 10 days. Interventional RX Recommendation: PCI w/o planned CABG Diagnostic RX Recommendation: PCI w/o planned CABG Pressures Phase:Rest AO : 134 mmHg / 75 mmHg ( 95 mmHg ) @ 12:26:00 PM 157 mmHg / 84 mmHg ( 110 mmHg ) @ 12:33:00 PM 111 mmHg / 74 mmHg ( 92 mmHg ) @ 12:54:00 PM Clinical Evaluation EBL: 5mL-10mL Procedural Details Procedure Consent Obtained. Pre-Procedure Time Out. Identified patient by full name and date of as verbalized by the patient/guarantor. Does the consent match the physician's order: Yes. Accurate & Complete Informed Consent: Yes. Inpatient/Outpatient History & Physical on Chart: Yes. If H&P is completed, is and addenduem needed: No; If yes, is the addendum complete: N/A. Visualize and Verify Site with Patient/Guarantor: N/A. Relevant Radiology Images available: N/A. Pre-op teaching completed and patient verbalized understanding. The risks, benefits, and alternatives of sedation and/or procedure were discussed by physician. The patient agrees to continue. Procedure started. [facility] Clinical Fraility Score: 3: Managing Well. Sharepoint Designer Developer Indications: ACS <= 24 hours. Chest Pain Symptom Assessment: Typical Angina Symptoms. Cardiovascular Instability: No. Correct patient, site and procedure confirmed by cath team. PERRLA. Strong, equal hand sample wrapper bilaterally. Lungs clear x 5 lobes. IV Site on Arrival: 18 gauge in the left anticubital. IV Fluids: 0.9% NaCl at KVO. 0 mL infused prior to veterinary laboratory technician. Pre Procedural Pulses: bilateral dorsalis pedis was 3+. Pre Procedural Pulses: bilateral posterior tibial was 3+. Pre Procedural Pulses: bilateral radial was 3+. Oxygen started at 2liters/min via nasal canula. right radial was prepped with chloroprep then draped in the usual sterile fashion. bilateral groins was prepped with chloroprep then draped in the usual sterile fashion. Baseline sample Acquired. HR: 76 BPM. Physician arrived. Equipment: 6F - Radial. Cardiac Cath Pack. Scaled Inference Manifold Kit Model BT 2000. Heparinized Saline (2 units/mL), 1000 mL bag. Physician scrubbed in. Immediate Pre-Procedure Time Out. Correct Patient: Yes; Correct Procedure: Yes; Correct Site: Yes; Correct Patient Position: Yes; Correct Supplies: Yes; Dried Flammable Prep: Yes; Blood Products Available: N/A;. Lidocaine 1% infiltrated to the right radial. Arterial access obtained. A 5 sudanese TIG catheter in over wire. Multiple views taken of left coronary artery. Catheter redirected to the RCA. Multiple views taken of right coronary artery. Catheter out. Inventory is CRD 6 FR XB 3.5 GUIDE. 6 sudanese XB 3.5 guide catheter was inserted over the wire. [place] guidewire was advanced through the guide catheter to lesion in the prox LAD. [place] guidewire was advanced through the guide catheter to lesion in the diaganol. Inflation number : 1 A AB TREK 2.75X25 RX BALLOON was prepped and advanced across the Prox LAD , then inflated to 8 HONORIO for 0:12 seconds. Balloon out. Inflation Number : 2 A REKHA R MICHAEL 3.0X18 OJVITA -Lot Number# [id number] exp date 09/05/2021) was prepped and advanced across the Prox LAD. The stent was deployed at 20 HONORIO for 0:25 seconds. Stent balloon out over wire. Results checked. [place] wire in diagonal removed. Inflation number : 3 A MDT NC EUPHORA RX [id number] BALLOON was prepped and advanced across the Prox LAD , then inflated to 16 HONORIO for 0:15 seconds. Inflation number: 4 The MDT NC EUPHORA RX [id number] BALLOON was reinflated across the Prox LAD, to 15 HONORIO for 0:13 seconds. Wire out. Guide catheter out. ACT drawn. Results 203 seconds. Therapeutic limits - pre-heparin administration 90-150 seconds and monitoring heparin during a vascular procedure >250 seconds. Physician scrubbed out. A TR Band was successful obtaining hemostatsis at the Right Radial artery insertion site. TR band placed. Hemostasis obtained. Post Procedure: Pulses reassessed and unchanged. PERRLA. Strong, equal hand sample wrapper bilaterally. No VTE prophylaxis required. Medication's Wasted: Lidocaine 1% = 16 mL. Medication's Wasted: Nitro = 49.4 mg. Medication's Wasted: Heparin = 3000 units. Medication's Wasted: Other = versed 1 mg. Total IV fluids: 75 mL. Contrast type used: Omnipaque 300 mgI/mL, 500 mL bottle. PCI Indication: Severe 2 vessel CAD. Complications: none. Estimated blood loss: 5mL-10mL. Procedure completed. Patient transferred by bed to 1st floor. Vital chart was stopped. Site: Right Radial artery Sheath Size: 6 Fr Hemostasis Method: TR Band Hemostasis Success: Successful Procedure Medications Start: 5:14 PM Stop: 5:14 PM Medication: Versed Amount: 1 mg Route: I.V. Start: 5:15 PM Stop: 5:15 PM Medication: Fentanyl Amount: 50 mcg Route: I.V. Start: 5:18 PM Stop: 5:18 PM Medication: Versed Amount: 1 mg Route: I.V. Start: 5:26 PM Stop: 5:26 PM Medication: Heparin Amount: 5000 units Route: I.V. Start: 5:34 PM Stop: 5:34 PM Medication: Fentanyl Amount: 50 mcg Route: I.V. Start: 5:39 PM Stop: 5:39 PM Medication: Heparin Amount: 3000 units Route: I.V. Start: 5:41 PM Stop: 5:41 PM Medication: Versed Amount: 1 mg Route: I.V. Start: 5:44 PM Stop: 5:44 PM Medication: Nitrogylcerin Amount: 200 mcg Route: I.A. Start: 6:01 PM Stop: 6:01 PM Medication: Nitrogylcerin Amount: 200 mcg Route: I.A. I, the attending physician, have reviewed and verified all procedure medications. Yes, all medications given per verbal order History/Risk Factors Hypertension: Yes Dyslipidemia: No Peripheral Arterial Disease (PAD): No Myocardial Infarction (IL): No Obesity: No Renal Disease: No Tobacco Use: Current/Recent(w/in 1 year) Prior Interventions PCI: No CABG: No Valve Surgery: No Report Signatures Finalized by:Wellington Jo MD on 03/30/2020 6:42:42 PM
--- NOTE | 2020-03-18 17:05 | PC.NURSE ---
Off Unit to laborer via bed. visitor at bedside.
--- NOTE | 2020-03-18 18:15 | PC.NURSE ---
From electroplating laborer pt is alert, oriented, denies any pain or discomfort. Tr Band intact. no hematoma, swelling, or bleeding noted. radial pulse is palpable +3. Instructed pt on activity restrictions. Elevate arm with pillow. call light within reach.
--- NOTE | 2020-03-18 22:39 | PC.NURSE ---
Patient TR band is off at this time. No bleeding or hematoma noted. Patient educated on not lifting with extremity. Will continue to monitor.
[2020-03-19] VITALS (18 sets, daily range): BP systolic 110–159; BP diastolic 77–96; PULSE 55–84; RESP 16–22; TEMP 36.6–36.8; O2SAT 95–97
[2020-03-19] MEDS: sodium chloride 0.9% 1,000 ML 100 ML IV (01:01)
[2020-03-19] MEDS: enoxaparin 80 mg/0.8 mL Syringe 70 MG SUBCUT (01:01)
[2020-03-19 04:44] LABS: Basophils % 0.4 %; Eosinophils # 0.2 10^3/uL (0.0-0.8); Eosinophils % 1.9 %; Hemoglobin 12.3 g/dL (11.7-16.6); Lymphocytes # 2.9 10^3/uL (0.8-4.8); Lymphocytes % 37.1 %; Mean Corpuscular HGB Conc 31.5 g/dL (30.0-36.0); Mean Corpuscular Hemoglobin 30.2 pg (28.0-34.0); Mean Corpuscular Volume 95.8 fL (80-94); Mean Platelet Volume 11.1 fL (7.4-10.4); Monocytes # 0.5 10^3/uL (0.2-0.9); Monocytes % 6.3 %; Neutrophils # 4.27 10^3/uL (1.8-7.7); Neutrophils % 54.2 %; Nucleated Red Blood Cells % 0 %; Platelet Count 217 10^3/cmm (130-400); Red Blood Count 4.07 10^6/uL (4.1-5.3); White Blood Count 7.9 10^3/uL (4.0-10.0)
[2020-03-19 05:06] LABS: Anion Gap 12.1 (5-19); Blood Urea Nitrogen 14 mg/dL (6-20); Carbon Dioxide 23 mmol/L (22-29); Chloride 109 mmol/L (98-107); Glomerular Filtration Rate 101.9 mL/min (90-130); Glucose 100 mg/dL (65-115); Osmolality Calculated 286 mOsm/kg (285-295); Potassium 4.1 mmol/L (3.5-5.1); Sodium 140 mmol/L (136-145)
--- NOTE | 2020-03-19 08:25 | PC.NURSE ---
pt resting in bed. right wrist observed from where tr band was removed. dressing was c/d/i. no needs identified at this time. call light within reach. will continue to monitor.
--- NOTE | 2020-03-19 08:58 | PM.DCS ---
Discharge Providers Date of Admission: 03/18/20 19:40 Date of Discharge: March 19, 2020 Attending Provider at Admission: Kelli Santos MD Attending Provider at Discharge: Wellington Jo MD Primary Care Provider: Pillo Elder NP Diagnoses at Discharge Discharge Diagnosis (1) Acute non-ST elevation myocardial infarction (NSTEMI): Status: Acute (2) Hypertension: Status: Acute Qualifiers: Hypertension type: essential hypertension Qualified Code(s): I10 - Essential (primary) hypertension Reason for Visit Reason for Visit: CP Hospital Course Discharge Summary: 49-year-old male past medical history significant for tobacco abuse was admitted with non-ST elevation IL he underwent left heart cath/PCI yesterday he was found to have proximal 80 to 90% calcified LAD lesion. It was treated with single drug-eluting stent good angiographic result was obtained. Patient has normal left main circumflex and nondominant chronically occluded RCA. Overnight patient did fine he remained stable his medicines were optimized echocardiogram was obtained his ejection fraction remains normal. He is being discharged home today. Right wrist wound looks good. Physical Exam Narrative: EXAM NARRATIVE: GENERAL: Patient is alert, awake and oriented x3. NECK: No jugular vein distension. HEENT: No cyanosis. No icterus. No pallor. HEART: Regular S1 and S2. No murmur, rub or gallop. LUNGS: Clear to auscultate bilaterally. ABDOMEN: Soft, nontender and nondistended. Positive bowel sounds. No guarding, rebound or tenderness. CENTRAL NERVOUS SYSTEM: Grossly nonfocal. EXTREMITIES: Lower extremities without edema bilaterally. 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 Timed Lab 03/18/20 03:57 Ordered CV echo complete* [id number] Routine Ultrasound 03/18/20 12:16 Taken Labs from last 24 hours 03/19/20 03/19/20 03/18/20 04:02 04:02 14:37 WBC 7.9 RBC 4.07 L Hgb 12.3 Hct 39.0 L MCV 95.8 H MCH 30.2 MCHC 31.5 RDW 14.0 Plt Count 217 MPV 11.1 H Neut % (Auto) 54.2 Lymph % (Auto) 37.1 Valley % (Auto) 6.3 Eos % (Auto) 1.9 Baso % (Auto) 0.4 Neut # (Auto) 4.27 Lymph # (Auto) 2.9 Valley # (Auto) 0.5 Eos # (Auto) 0.2 Baso # (Auto) 0.0 Nucleated RBC % (a uto) 0 Nucleated RBCs # 0.0 Sodium 140 Potassium 4.1 Chloride 109 H Carbon Dioxide 23 Anion Gap 12.1 BUN 14 Creatinine 0.8 GFR Calculation 101.9 Glucose 100 Calculated Osmolal ity 286 Calcium 8.0 L Troponin T Gen 5 n g/L 120 H* Urine Color Urine Appearance Urine pH Ur Specific Gravit y Urine Protein Urine Glucose (UA) Urine Ketones Urine Blood Urine Nitrate Urine Bilirubin Urine Urobilinogen Ur Leukocyte Mayda ase Urine RBC Urine WBC Ur Squamous Epith Cells Amorphous Sediment Urine Bacteria 03/18/20 04:13 WBC RBC Hgb Hct MCV MCH MCHC RDW Plt Count MPV Neut % (Auto) Lymph % (Auto) Valley % (Auto) Eos % (Auto) Baso % (Auto) Neut # (Auto) Lymph # (Auto) Valley # (Auto) Eos # (Auto) Baso # (Auto) Nucleated RBC % (a uto) Nucleated RBCs # Sodium Potassium Chloride Carbon Dioxide Anion Gap BUN Creatinine GFR Calculation Glucose Calculated Osmolal ity Calcium Troponin T Gen 5 n g/L Urine Color Yellow Urine Appearance Hazy A Urine pH 5 Ur Specific Gravit y 1.005 Urine Protein 2+ H Urine Glucose (UA) Norm Urine Ketones Negative Urine Blood 3+ H Urine Nitrate Negative Urine Bilirubin Neg Urine Urobilinogen Norm Ur Leukocyte Mayda ase Negative Urine RBC 10-15 H Urine WBC None Ur Squamous Epith Cells 0-4 H Amorphous Sediment Not Reportable Urine Bacteria Trace Vitals: Last Vital Signs Temp 98.3 F 03/19/20 07:59 Pulse 84 03/19/20 08:46 Resp 18 03/19/20 07:59 BP 159/96 03/19/20 07:59 Pulse Ox 97 03/19/20 08:46 Discharge Plan Discharge Patient Disposition: Home Condition: Stable Prescriptions: New atorvastatin 40 mg Tablet 80 mg PO BEDTIME Qty: 90 RF: 4 clopidogrel 75 mg Tablet 75 mg PO DAILY Qty: 90 RF: 4 aspirin 81 mg Tablet,Chewable 81 mg PO DAILY Qty: 90 RF: 3 lisinopril 5 mg tablet 5 mg PO DAILY Qty: 30 RF: 3 Continued metoprolol tartrate 25 mg Tablet 25 mg PO BID RF: 0 nitroglycerin 0.4 mg Tablet, Sublingual 0.4 mg SUBLINGUAL Q5M PRN (Reason: Chest Pain) RF: 0 Discharge Orders: Discharge Order (Routine); Ordered 03/19/20 Ordered By: Wellington Jo Referrals: Wellington Jo MD [Physician] - (You have an follow-up appointment with Dr. Jo on at 12:45p.m. If you have any questions or need to reschedule. Please call ) Malika Casarez FNP [Nurse Practitioner] - (You have an follow-up appointment with Malika Casarez on at 10:15a.m. If you have any questions ot need to reschedule. Please call ) Yessi Smith MD [Physician] - 03/20/20 2:40 pm Discharge Diet: Cardiac Patient Instructions: Lisinopril (By mouth), Aspirin (By mouth), Atorvastatin (By mouth), Clopidogrel (By mouth), Myocardial Infarction (DC), Left Heart Catheterization (DC), Coronary Angioplasty (DC), Hypertension (DC), Post Angiogram Home Care Instructions Activity Restrictions/Additional Instructions: Follow-up with cardiology nurse practitioner Malika Casarez in 7 days. Discharge Date/Time: 03/19/20 10:37 Discharge Attestations Time Spent in Discharge Care*: less than 30 min Specific Discharge Activities: Specific discharge activities: educating patient Quality Metrics Clinical Quality Measures During this hospital stay, did patient experience: None Coding Level of Care Code Established Pt Acute Engine Room Helper for Chg Fwd Patient Type Established History Expanded Problem Focused Exam Expanded Problem Focused Medical Decision Making Moderate Complexity Diagnoses Acute non-ST elevation myocardial infarction (NSTEMI) I21.4 Hypertension I10 Hypertension type: essential hypertension
[2020-03-19] MEDS: clopidogrel 75 mg Tablet PO (09:04)
[2020-03-19] MEDS: aspirin 81 mg Chew Tablet PO (09:04)
[2020-03-19] MEDS: pantoprazole DR 40 mg Tablet PO (09:04)
--- NOTE | 2020-03-19 10:35 | PC.NURSE ---
discharge instructions given. all questions answered. iv removed. tip intact. pt escorted via wheelchair to door where family member picked him up via vehicle.
== END 2020-03-19 10:37 | disposition home or self-care (01) | DRG 247 ==
LOC: ER 03-18 00:35 → CSU 03-18 03:24
PROVIDERS: Admitting Provider Hospitalist; Emergency Provider Emergency Medicine; PCP Nurse Practitioner Family; Visit Provider Internal Medicine Cardiovascular Disease
PROC: 027034Z Dilation of Coronary Artery, One Artery with Drug-eluting Intraluminal Device, Percutaneous Approach (ICD-10-PCS; principal; 2020-03-18 16:30)
PROC: 027034Z Dilation of Coronary Artery, One Artery with Drug-eluting Intraluminal Device, Percutaneous Approach (ICD-10-PCS; 2020-03-18 16:30)
DX: I21.4 Non-ST elevation (NSTEMI) myocardial infarction (principal); I10 Essential (primary) hypertension; F17.210 Nicotine dependence, cigarettes, uncomplicated
CPT/HCPCS: 12345; 36415; 71045; 71275; 74176; 80048; 80053; 81001; 83735; 83880; 84484; 85025; 85347; 85378; 85610; 85730; 93005; 93306; 93454; 96372; 99284; C1725; C1769; C1874; C1887; C1894; C9600; G0378; J1644; J1650; J2250; J2405; J3010; J3490; J7030; Q0163; Q9967

== ENCOUNTER → 2020-03-20 15:21 | Outpatient (BNVA) | payer SELFPAY | PROVIDERS: PCP Nurse Practitioner Family; Visit Provider Family Medicine | DX: M54.5 Low back pain (principal) | CPT/HCPCS: 80053; 81003 ==

== ENCOUNTER → 2020-03-26 11:18 | Outpatient (BNVA) | payer SELFPAY | PROVIDERS: PCP Nurse Practitioner Family; Visit Provider Nurse Practitioner Family | DX: I25.10 Atherosclerotic heart disease of native coronary artery without angina pectoris (principal); R39.198 Other difficulties with micturition | CPT/HCPCS: 80048; G0103 ==

== ENCOUNTER → 2021-08-27 09:39 | Outpatient (BNVA) | payer MEDICAID, SELFPAY | PROVIDERS: PCP Family Medicine; Visit Provider Nurse Practitioner | DX: I10 Essential (primary) hypertension (principal); J98.01 Acute bronchospasm; R39.11 Hesitancy of micturition; J84.10 Pulmonary fibrosis, unspecified | CPT/HCPCS: 71046; 74018; 80053; 80061; 81003; 85025 ==

== ENCOUNTER → 2021-11-10 09:41 | Outpatient (BNVA) | payer BC, MEDICAID, SELFPAY | PROVIDERS: PCP Family Medicine; Visit Provider Nurse Practitioner | DX: I10 Essential (primary) hypertension (principal); R39.11 Hesitancy of micturition; J98.01 Acute bronchospasm; I25.119 Atherosclerotic heart disease of native coronary artery with unspecified angina pectoris; M25.50 Pain in unspecified joint; E55.9 Vitamin D deficiency, unspecified; I25.10 Atherosclerotic heart disease of native coronary artery without angina pectoris | CPT/HCPCS: 80053; 82306; 85025; 85651; 86140; 86431 ==

== ENCOUNTER → 2022-07-14 10:45 | Outpatient (BNVA) | payer BC, MEDICAID, SELFPAY | PROVIDERS: PCP Family Medicine; Visit Provider Nurse Practitioner | DX: I10 Essential (primary) hypertension (principal); E55.9 Vitamin D deficiency, unspecified | CPT/HCPCS: 80053; 80061; 81000; 82306; 85025 ==

== ENCOUNTER → 2022-11-10 15:12 | Outpatient (BNVA) | payer BC, MEDICAID, SELFPAY | PROVIDERS: PCP Nurse Practitioner; Visit Provider Nurse Practitioner | DX: I10 Essential (primary) hypertension (principal) | CPT/HCPCS: 80053; 80061; 82306 ==

== ENCOUNTER → 2022-11-18 09:40 | Outpatient (BNVA) | payer BC, MEDICAID, SELFPAY | PROVIDERS: PCP Nurse Practitioner; Visit Provider Nurse Practitioner | DX: M47.817 Spondylosis without myelopathy or radiculopathy, lumbosacral region (principal); R20.2 Paresthesia of skin; M25.561 Pain in right knee; M19.90 Unspecified osteoarthritis, unspecified site | CPT/HCPCS: 72100; 73562 ==

== ENCOUNTER 2022-12-16 13:57 | Outpatient (CLI) | payer BC, MEDICAID, SELFPAY ==
--- NOTE | 2022-12-16 14:30 | CT_ITS ---
WS: [id number] CT HEAD TECHNIQUE: Noncontrast CT of the head obtained from the skullbase to the vertex. CLINICAL INFORMATION: R55 - Syncope and collapse COMPARISON: None. DLP: 1087.[address] scans at [facility] use at least one of these dose optimization techniques: automated e xposure control; mA and/or kV adjustment per patient size (includes targeted exams where dose is matc hed to clinical indication); or iterative reconstruction. FINDINGS: No evidence of intracranial hemorrhage or mass effect. Ventricular system and basal cisterns are falcon nt. Minimal small vessel changes with no significant parenchymal volume loss. Tiny chronic lacunar in farct RIGHT caudate. Intracranial vascular calcification. No extra-axial fluid collections. No eviden ce of mass or mass effect. Paranasal sinuses and mastoid air cells are well aerated. .Normal visualized soft tissues. CT/CT head wo con* [id number] IMPRESSION: 1. No evidence of intracranial hemorrhage or mass effect. 2. Minimal small vessel changes. 3. Tiny chronic lacunar infarct RIGHT caudate. 4. No acute intracranial findings.
== END 2022-12-16 13:58 | disposition home or self-care (01) ==
LOC: RAD 13:58
PROVIDERS: PCP Nurse Practitioner; Visit Provider Nurse Practitioner
DX: I63.81 Other cerebral infarction due to occlusion or stenosis of small artery (principal); R55 Syncope and collapse
CPT/HCPCS: 70450

== ENCOUNTER → 2023-05-20 10:16 | Outpatient (BNVA) | payer BC, MEDICAID, SELFPAY | PROVIDERS: PCP Nurse Practitioner; Visit Provider Nurse Practitioner | DX: E55.9 Vitamin D deficiency, unspecified (principal); I10 Essential (primary) hypertension | CPT/HCPCS: 80053; 80061; 82306; 85025 ==

== ENCOUNTER → 2023-08-10 13:42 | Outpatient (BNVA) | payer BC, MEDICAID, SELFPAY | PROVIDERS: PCP Nurse Practitioner; Visit Provider Nurse Practitioner | DX: M79.661 Pain in right lower leg (principal) | CPT/HCPCS: 85025 ==

== ENCOUNTER 2023-08-11 11:15 | Outpatient (CLI) | payer BC, MEDICAID, SELFPAY ==
--- NOTE | 2023-08-11 11:45 | USCV_ITS ---
Apollo Price Age: 53 Gender: M : 1970 Exam Date: 08/11/2023 10:45 Ordering Phys: Haily Moscoso Technologist: Tony Emery Exam Location: Echo Lab Indication: rt leg pain PROCEDURES: Venous duplex imaging was performed in only the right lower extremity. The following venous structures were evaluated: common femoral vein, profunda vein, proximal portion of the greater saphenous vein, superficial femoral vein, and the popliteal vein. In addition, the posterior tibial and peroneal trunk were evaluated. FINDINGS: Normal 2-D Doppler and augmentation and compressibility throughout the lower extremity venous structures. Additional imaging through the proximal calf veins also reveals no thrombus. Limited evaluation of the greater saphenous vein is patent with no thrombus. CONCLUSIONS No evidence of right lower extremity DVT. Avila Juarez MD (Electronically Signed) Final Date: 11 August 2023 14:57 S
== END 2023-08-11 11:16 | disposition home or self-care (01) ==
LOC: RAD 11:15
PROVIDERS: PCP Nurse Practitioner; Visit Provider Nurse Practitioner
DX: M79.661 Pain in right lower leg (principal)
CPT/HCPCS: 93971

== ENCOUNTER → 2023-11-04 10:17 | Outpatient (BNVA) | payer BC, MEDICAID, SELFPAY | PROVIDERS: PCP Nurse Practitioner; Visit Provider Nurse Practitioner | DX: I10 Essential (primary) hypertension (principal) | CPT/HCPCS: 71046; 80053; 81000; 85025 ==

== ENCOUNTER → 2024-06-12 13:21 | Outpatient (BNVA) | payer BC, MEDICAID, SELFPAY | PROVIDERS: PCP Nurse Practitioner; Visit Provider Nurse Practitioner | DX: I10 Essential (primary) hypertension (principal); E55.9 Vitamin D deficiency, unspecified | CPT/HCPCS: 80053; 80061; 82306; 85025 ==

== ENCOUNTER → 2024-06-19 09:35 | Outpatient (BNVA) | payer BC, MEDICAID, SELFPAY | PROVIDERS: PCP Nurse Practitioner; Visit Provider Nurse Practitioner | DX: M47.892 Other spondylosis, cervical region (principal) | CPT/HCPCS: 72040 ==

== ENCOUNTER → 2024-08-29 15:38 | Outpatient (BNVA) | payer BC, MEDICAID, SELFPAY | PROVIDERS: PCP Nurse Practitioner; Visit Provider Internal Medicine Cardiovascular Disease | DX: R07.9 Chest pain, unspecified (principal); R06.02 Shortness of breath; I50.31 Acute diastolic (congestive) heart failure; I10 Essential (primary) hypertension; I25.119 Atherosclerotic heart disease of native coronary artery with unspecified angina pectoris | CPT/HCPCS: 36415; 80048; 83880 ==

== ENCOUNTER 2024-10-03 07:43 | Outpatient (CLI) | payer BC, MEDICAID, SELFPAY ==
--- NOTE | 2024-10-03 | ECG_ITS ---
[facility] Test Date: 2024-10-03 Pat Name: Apollo Price Department: Room: Gender: Male Risk Intern: : 1970 Requested By: Wellington Jo Order Number: [id number] Mono MD: Santino Stanford M.D. Interpretive Statements LEXISCAN: Procedure: At the baseline, the blood pressure was 158/90 mmHg with a heart rate of 75 bpm. The electrocardiogram showed normal sinus rhythm, normal axis with normal ST and T's. The Lexiscan was infused over a period of 20 seconds. A total of 0.4 mg of Lexiscan was infused. The stress phase was continued for a total of 5 minutes. Heart rate was at the end of stress phase was 110 bpm and a blood pressure of 147/86 mmHg. The EKG at the peak infusion revealed normal sinus rhythm with no significant ST-T wave changes. Sestamibi was injected 20 seconds after the Lexiscan infusion. Blood pressure at the end of recovery phase was 143/83 mmHg with a heart rate of 105 bpm. Conclusion: 1. Normal EKG response to Lexiscan infusion 2. No Lexiscan induced chest pain or cardiac arrhythmia. 3. Normal blood pressure and heart rate response. 4. Sestamibi/sestamibi perfusion scan pending; see separate report. Electronically Signed On 10-21-2024 22:07:01 CDT by Santino Stanford M.D. [email or web address]
[2024-10-03 08:09] VITALS: BMI 25.0
--- NOTE | 2024-10-03 08:10 | NMCV_ITS ---
NM alayna perf SPECT r/s* [id number] Apollo Price Age: 54 Gender: M : 1970 Exam Date: 10/03/2024 08:46 Ordering Phys: Wellington Jo MD ([email or web address]) Technologist: STEPHANE Owens Exam Location: [facility] Indications: cp STRESS TEST Please see separate stress test report in [facility] for full findings IMAGE PROTOCOL Rest/Stress 1 Lexiscan Day Radiopharmaceutical Dose (mCi) Administration Site Administered by Rest: Tc-99m 10.9 IV STEPHANE Owens Sestamibi Stress:Tc-99m 33 IV STEPHANE Owens Sestamibi Rest: 03-Oct-2024 60 Discovery 630 Stress: 03-Oct-2024 30 Discovery 630 0.4mg Lexiscan. Images obtained in supine and prone position. SPECT RESULTS Technical Quality: Good Raw Data Analysis: Normal Image Corrections: No attenuation or motion correction applied Summed Stress Score: 1 Summed Rest Score: 4 Summed Difference Score: 1 PERFUSION FINDINGS There is reduced radiotracer uptake seen in inferior and inferolateral casillas that resolves on prone imaging. This is consistent with attenuation artifact seen in RCA and left circumflex artery territory. No evidence of ischemia. FUNCTIONAL RESULTS (calculated via Gated SPECT) Stress Image LV EF (%): 62 Stress EDV (mL):103 TID: 1.05 Stress ESV (mL):39 FUNCTIONAL FINDINGS: There is normal left ventricular systolic function. IMPRESSIONS 1. Attenuation artifact seen in RCA and left circumflex artery territories. No evidence of ischemia. 2. LV systolic function is normal Santino Stanford MD (Electronically Signed) Final Date: 05 October 2024 18:09 S
[2024-10-03] MEDS: regadenoson 0.4 Mg/5 ml Syringe IVP (09:06)
[2024-10-03 09:22] VITALS: BP 143/83; PULSE 105
--- NOTE | 2024-10-03 12:45 | USCV_ITS ---
Apollo Price Age: 54 Gender: M : 1970 Exam Date: 10/03/2024 08:17 Ordering Phys: Wellington Jo MD ([email or web address]) Technologist: AISHA Exam Location: [facility] Indication: CP/SOB BP: 140 / 90 HR: 89 Rhythm: Sinus Technical Quality: Adequate MEASUREMENTS (Male / Female) Normal Values 2D ECHO LV Diastolic Diameter PLAX 4.8 cm 4.2 - 5.9 / 3.9 - 5.3 cm IVS Diastolic Thickness 1.2 cm 0.6 - 1.0 / 0.6 - 0.9 cm IVS Systolic Thickness 1.6 cm LVPW Diastolic Thickness 1.1 cm 0.6 - 1.0 / 0.6 - 0.9 cm LVPW Systolic Thickness 1.4 cm LVOT Diameter 2.0 cm LV Ejection Fraction 2D Teich 55.4 % LV Ejection Fraction MOD 4C 58.1 % LV Ejection Fraction MOD 2C 61.5 % LV Ejection Fraction 2C AL 64.4 % LA Diameter 2.8 cm RA Systolic Volume 4C AL 24.2 ml RA Systolic Volume 4C MOD 23.9 ml LA Sys Volume AL 30.3 cm cubed LA Sys Volume Index AL 16.6 cm cubed/m squared Aorta at Sinotubular Diameter 2.9 cm IVC Diameter 1.3 cm M-MODE LA Ao Ratio MM 1.1 AV Cusp Separation MM 1.2 cm DOPPLER AV Peak Velocity 122.0 cm/s LVOT Peak Velocity 104.0 cm/s AV Area Cont Eq vti 2.5 cm squared AV Area Cont Eq pk 2.7 cm squared MV Peak Velocity 78.0 cm/s MV Area PHT 2.4 cm squared Mitral E to A Ratio 1.0 TR Peak Velocity 71.0 cm/s TR Peak Gradient 2.0 mmHg TV Peak E Velocity 80.0 cm/s PV Peak Velocity 72.0 cm/s FINDINGS Left Ventricle Normal left ventricular size, systolic function and wall thickness, with no regional wall motion abnormalities. Left ventricular ejection fraction is estimated at 60 %. Grade I/IV diastolic dysfunction (abnormal relaxation filling pattern), normal to mildly elevated filling pressures. Right Ventricle The right ventricle is normal in size and function. Right Atrium The right atrium is normal in size. Left Atrium The left atrium is normal in size. Mitral Valve Structurally normal mitral valve without significant stenosis or prolapse. There is no mitral regurgitation. Aortic Valve Structurally normal aortic valve without significant sclerosis or stenosis. There is no aortic regurgitation. Tricuspid Valve Structurally normal tricuspid valve without significant stenosis or regurgitation. Pulmonary artery systolic pressure is normal. Pulmonic Valve Structurally normal pulmonic valve without significant stenosis. There is no pulmonic regurgitation. Pericardium Normal pericardium without effusion. Aorta Normal ascending aorta dimension. IVC The inferior vena cava appears normal. CONCLUSIONS Normal left ventricular size, systolic function and wall thickness, with no regional wall motion abnormalities. Left ventricular ejection fraction is estimated at 60 %. Grade I/IV diastolic dysfunction (abnormal relaxation filling pattern), normal to mildly elevated filling pressures. There is no pericardial effusion. No significant valve abnormalities. Right atrial pressure is around 5 mm of mercury. Wellington Jo MD (Electronically Signed) Final Date: 13 October 2024 20:22 S
== END 2024-10-03 07:44 | disposition home or self-care (01) ==
PROVIDERS: PCP Nurse Practitioner; Visit Provider Internal Medicine Cardiovascular Disease
DX: R07.9 Chest pain, unspecified (principal); R06.02 Shortness of breath
CPT/HCPCS: 36415; 78452; 93017; 93306; 96374; A9500; J2785

== ENCOUNTER → 2024-11-30 09:04 | Outpatient (BNVA) | payer BC, MEDICAID, SELFPAY | PROVIDERS: PCP Nurse Practitioner; Visit Provider Nurse Practitioner | DX: I10 Essential (primary) hypertension (principal); Z12.5 Encounter for screening for malignant neoplasm of prostate | CPT/HCPCS: 80053; 80061; G0103 ==

== ENCOUNTER → 2025-06-11 11:11 | Outpatient (BNVA) | payer BC, MEDICAID, SELFPAY | PROVIDERS: PCP Nurse Practitioner; Visit Provider Nurse Practitioner | DX: I10 Essential (primary) hypertension (principal); R20.2 Paresthesia of skin | CPT/HCPCS: 80053; 80061; 82607 ==